=== PATIENT | male | born 1990 | race Caucasian/White ===

== ENCOUNTER 2021-04-07 09:28 | Emergency (ER) | payer OTHER ==
[~2021-04-07] VITALS: Wt 81.6 kg
[2021-04-07] MEDS ORDERED: SEPTDS PO (09:59)
[2021-04-07] MEDS ORDERED: CEPHALEXIN500 M1 PO (09:59)
== END 2021-04-07 10:05 | disposition home or self-care (01) ==
LOC: ED 09:28
DX: L02.212 Cutaneous abscess of back [any part, except buttock and flank] (principal)

== ENCOUNTER → 2021-09-21 | Outpatient (CLI) | payer OTHER ==
[~2021-09-21] MED LIST: CEPHALEXIN500 M1 PO; SEPTDS PO
== END | disposition home or self-care (01) ==
LOC: RAD 16:26
PROVIDERS: ATTEND Nurse Practitioner Family
DX: M89.8X1 Other specified disorders of bone, shoulder (principal); M79.89 Other specified soft tissue disorders

== ENCOUNTER → 2021-11-16 | Outpatient (CLI) | payer OTHER | END | disposition home or self-care (01) | LOC: MRI 09:00 | PROVIDERS: ATTEND Nurse Practitioner Family | DX: M79.89 Other specified soft tissue disorders (principal); M25.512 Pain in left shoulder ==

== ENCOUNTER 2022-04-23 06:06 | Emergency (ER) | payer OTHER ==
[2022-04-23] MEDS ORDERED: IBU800 M2 PO (06:23)
== END 2022-04-23 08:07 | disposition home or self-care (01) ==
LOC: ED 06:06
DX: S86.891A Other injury of other muscle(s) and tendon(s) at lower leg level, right leg, initial encounter (principal); X50.3XXA Overexertion from repetitive movements, initial encounter; Y93.89 Activity, other specified; Y92.89 Other specified places as the place of occurrence of the external cause; Y99.0 Civilian activity done for income or pay